=== PATIENT | male | born 1995 | race Caucasian/White ===

== ENCOUNTER 2021-09-02 14:32 | Emergency (ER) | payer OTHER ==
[~2021-09-02] VITALS: Ht 190 cm; Wt 208.0 kg
--- NOTE | 2021-09-02 14:45 | ED Abdominal Pain ---
General Stated Complaint: RLQ PAIN Source of Information: Patient Exam Limitations: No Limitations History of Present Illness Date Seen by Provider: Sep 02, 2021 Time Seen by Provider: 14:29 Initial Comments Patient ER by a private conveyance from [facility] with chief complaint is had about 2 to 3 days of abdominal pain right lower quadrant. He had a bowel movement this morning which was normal and did not relieve or worsen his pain. Last time he ate was at 9:00 this morning. Did not relieve or worsen his pain. No nausea vomiting fevers chills rash or sick contacts. No history of abdominal surgeries. No significant medical history. The patient was awoken from sleep early this morning with the pain. He rates it as about 4 out of 10. He has not taken anything for the pain. Allergies and Home Medications Allergies Coded Allergies: No Known Drug Allergies (Unverified , 09/02/21) Patient Home Medication List Home Medication List Reviewed: Yes Review of Systems Review of Systems Constitutional: No chills, No diaphoresis EENTM: No Blurred Vision, No Double Vision Respiratory: Denies Cough, Denies Shortness of Air Cardiovascular: Denies Chest Pain, Denies Lightheadedness Gastrointestinal: Abdominal Pain; Denies Constipated, Denies Diarrhea, Denies Nausea Genitourinary: Denies Discharge, Denies Drainage Musculoskeletal: No back pain, No joint pain Skin: No pruritus, No rash Psychiatric/Neurological: Denies Headache, Denies Numbness All Other Systems Reviewed Negative Unless Noted: Yes Past [place]-Kgryll-Boskke Hx Patient Social History Tobacco Use?: No Use of E-Cig and/or Vaping dev: No Substance use?: No Physical Exam Vital Signs Vital Signs - First Documented 09/02/21 14:40 Temp 37.1 Pulse 83 Resp 18 B/P (MAP) 167/103 (124) Pulse Ox 100 Capillary Refill : Height/Weight/BMI Height: '" Weight: lbs. oz. kg; BMI Method: General Appearance: WD/WN, no apparent distress HEENT: PERRL/EOMI, pharynx normal Neck: full range of motion, normal inspection Respiratory: lungs clear, normal breath sounds, no respiratory distress, no accessory muscle use Cardiovascular: normal peripheral pulses, regular rate, rhythm Gastrointestinal: normal bowel sounds, non tender, soft, no organomegaly; No rebound; other (Negative for psoas sign, Rovsing sign, McBurney's point tenderness. Some tenderness under the umbilicus just to the right side.) Extremities: normal range of motion, non-tender, normal capillary refill Neurologic/Psychiatric: alert, normal mood/affect, oriented x 3 Skin: normal color, warm/dry Progress/Results/Core Measures Results/Orders Lab Results Laboratory Tests Test 09/02/21 14:50 Range/Units White Blood Count 9.4 4.3-11.0 10^3/uL Red Blood Count 4.82 4.30-5.52 10^6/uL Hemoglobin 14.0 13.3-17.7 g/dL Hematocrit 44 40-54 % Mean Corpuscular Volume 90 80-99 fL Mean Corpuscular Hemoglobin 29 25-34 pg Mean Corpuscular Hemoglobin Concent 32 32-36 g/dL Red Cell Distribution Width 13.5 10.0-14.5 % Platelet Count 277 130-400 10^3/uL Mean Platelet Volume 10.3 9.0-12.2 fL Immature Granulocyte % (Auto) 0 % Neutrophils (%) (Auto) 63 42-75 % Lymphocytes (%) (Auto) 27 12-44 % Monocytes (%) (Auto) 6 0-12 % Eosinophils (%) (Auto) 3 0-10 % Basophils (%) (Auto) 1 0-10 % Neutrophils # (Auto) 5.9 1.8-7.8 10^3/uL Lymphocytes # (Auto) 2.6 1.0-4.0 10^3/uL Monocytes # (Auto) 0.6 0.0-1.0 10^3/uL Eosinophils # (Auto) 0.3 0.0-0.3 10^3/uL Basophils # (Auto) 0.1 0.0-0.1 10^3/uL Immature Granulocyte # (Auto) 0.0 0.0-0.1 10^3/uL Sodium Level 138 135-145 MMOL/L Potassium Level 4.3 3.6-5.0 MMOL/L Chloride Level 103 98-107 MMOL/L Carbon Dioxide Level 22 21-32 MMOL/L Anion Gap 13 5-14 MMOL/L Blood Urea Nitrogen 15 7-18 MG/DL Creatinine 0.80 0.60-1.30 MG/DL Estimat Glomerular Filtration Rate 124 BUN/Creatinine Ratio 19 Glucose Level 86 70-105 MG/DL Calcium Level 9.8 8.5-10.1 MG/DL Corrected Calcium 8.5-10.1 MG/DL Total Bilirubin 0.6 0.1-1.0 MG/DL Aspartate Amino Transf (AST/SGOT) 29 5-34 U/L Alanine Aminotransferase (ALT/SGPT) 55 0-55 U/L Alkaline Phosphatase 71 40-136 U/L C-Reactive Protein High Sensitivity 0.69 H 0.00-0.50 MG/DL Total Protein 7.8 6.4-8.2 GM/DL Albumin 4.6 H 3.2-4.5 GM/DL My Orders Orders - MAUREEN BETTENCOURT Cbc With Automated Diff (09/02/21 14:37) Comprehensive Metabolic Panel (09/02/21 14:37) Hs C Reactive Protein (09/02/21 14:37) Ed Iv/Invasive Line Start (09/02/21 14:37) Ct Abd/Pelv W (Appendicitis) (09/02/21 14:37) Iohexol Injection (Omnipaque 350 Mg/Ml 1 (09/02/21 15:00) Received Contrast (Hold Metformin- Contr (09/02/21 15:00) Sodium Chloride Flush (Catheter Flush Sy (09/02/21 15:00) Ns (Ivpb) (Sodium Chloride 0.9% Ivpb Bag (09/02/21 15:00) Medications Given in ED Current Medications Medications Dose Ordered Sig/Nahed Route Start Time Stop Time Status Last Admin Dose Admin Iohexol 100 ml ONCE ONCE IV 09/02/21 15:00 09/02/21 15:01 DC 09/02/21 15:10 100 ML Sodium Chloride 10 ml NEEDED PRN IV 09/02/21 15:00 09/02/21 15:10 10 ML Sodium Chloride 100 ml ONCE ONCE IV 09/02/21 15:00 09/02/21 15:01 DC 09/02/21 15:10 80 ML Vital Signs/I&O 09/02/21 14:40 Temp 37.1 Pulse 83 Resp 18 B/P (MAP) 167/103 (124) Pulse Ox 100 Progress Progress Note : Time: 14:53 Progress Note Patient declined anything for pain. We will go ahead and give him a liter of fluids check some labs and get a CT of his abdomen pelvis with IV contrast to focus on the appendix. Diagnostic Imaging Diagonstic Imaging: CT Plain Films/CT/US/NM/MRI: abdomen, pelvis Comments [facility], [place] NAME: JUAN M NATARAJAN [facility] REC#: [id number] PT STATUS: REG ER : 1995 PHYSICIAN: MAUREEN BETTENCOURT MD ADMIT DATE: 09/02/21/ER Signed Date of Exam:09/02/21 CT ABD/PELV W (APPENDICITIS) EXAMINATION: CT abdomen and pelvis with intravenous contrast. TECHNIQUE: Multiple contiguous axial images were obtained through the abdomen and pelvis after the uneventful administration of intravenous contrast. All CT scans use one or more of the following dose optimizing techniques: Automated exposure control, MA and/or KvP adjustment based on patient size and exam type or iterative reconstruction. HISTORY: RLQ pain. COMPARISON: None available. FINDINGS: Lung bases: The lung bases are clear. Solid organs: The liver is normal without focal lesion. The gallbladder is normal. There is no biliary ductal dilation. Pancreas is normal. Spleen is normal. Adrenal glands are normal. The kidneys are normal without hydronephrosis. Bowel: The stomach and small bowel are normal without obstruction. The colon and appendix are normal. Peritoneum: There is no intraperitoneal free fluid or free air. No suspicious lymphadenopathy. Vasculature: Normal without aneurysm. Musculoskeletal: No suspicious osseous lesion or compression fracture. Pelvis: The prostate gland is normal. The urinary bladder is normal. IMPRESSION: 1. No acute abnormality in the abdomen or pelvis. Dictated by: Dictated on workstation # [id number] Dict: 09/02/21 1514 Trans: 09/02/21 1632 [id number] Interpreted by: GOKUL STAFFORD DO Electronically signed by: GOKUL STAFFORD DO 09/02/21 1632 Reviewed: Reviewed by Me Departure Impression Primary Impression: Abdominal pain Qualified Codes: R10.31 - Right lower quadrant pain Disposition: 01 HOME, SELF-CARE Condition: Stable Departure-Patient Inst. Decision time for Depature: 16:56 Referrals: FABIAN GARCIA MD (PCP/Family) Primary Care Physician Patient Instructions: Stomach Ache and Stomach Upset Add. Discharge Instructions: Drink plenty of fluids. If you get nauseated you can use Zofran 1 tablet every 6 hours. If you have severe intractable pain that does not respond to Tylenol, ibuprofen or Tums then you may return to the nearest ER for further evaluation. If your symptoms are mild but persistent then you can follow-up with your primary care doctor for reevaluation next week. Scripts Ondansetron (Ondansetron Odt) 4 Mg Tab.rapdis 4 MG PO Q6H PRN for NAUSEA/VOMITING, #8 TAB 0 Refills Prov: MAUREEN BETTENCOURT 09/02/21 MAUREEN BETTENCOURT Sep 02, 2021 14:45
[2021-09-02] MEDS ORDERED: NS 100 ML (IVPB) BAG IV ONE (15:00)
[2021-09-02] MEDS ORDERED: CATHETER FLUSH 10 ML SYR IV PRN (15:00)
[2021-09-02] MEDS ORDERED: IOHEXOL 350 MG/ML 100 ML (OMNIPAQUE 350) VIAL IV ONE (15:00)
[2021-09-02] MEDS ORDERED: HOLD METFORMIN - RECEIVED CONTRAST 20 ML VIAL IV SCH (15:00)
[2021-09-02 15:10] LABS: ALBUMIN 4.6 GM/DL (3.2-4.5); CHLORIDE 103 MMOL/L (98-107); POTASSIUM 4.3 MMOL/L (3.6-5.0); SODIUM 138 MMOL/L (135-145)
[2021-09-02 15:11] LABS: CALCIUM 9.8 MG/DL (8.5-10.1)
[2021-09-02 15:13] LABS: GLUCOSE 86 MG/DL (70-105); TOTAL PROTEIN 7.8 GM/DL (6.4-8.2)
[2021-09-02 15:14] LABS: CARBON DIOXIDE 22 MMOL/L (21-32)
[2021-09-02 15:15] LABS: BILIRUBIN,TOTAL 0.6 MG/DL (0.1-1.0)
[2021-09-02 15:16] LABS: ALKALINE PHOSPHATASE 71 U/L (40-136); BASOPHILS # (AUTO) 0.1 10^3/uL (0.0-0.1); BASOPHILS % (AUTO) 1 % (0-10); EOSINOPHILS # (AUTO) 0.3 10^3/uL (0.0-0.3); EOSINOPHILS % (AUTO) 3 % (0-10); HEMATOCRIT 44 % (40-54); LYMPHOCYTES # (AUTO) 2.6 10^3/uL (1.0-4.0); LYMPHOCYTES % (AUTO) 27 % (12-44); MEAN CORPUSCULAR HEMOGLOBIN 29 pg (25-34); MEAN CORPUSCULAR HGB CONC 32 g/dL (32-36); MEAN CORPUSCULAR VOLUME 90 fL (80-99); MEAN PLATELET VOLUME 10.3 fL (9.0-12.2); MONOCYTES # (AUTO) 0.6 10^3/uL (0.0-1.0); MONOCYTES % (AUTO) 6 % (0-12); NEUTROPHILS # (AUTO) 5.9 10^3/uL (1.8-7.8); NEUTROPHILS % (AUTO) 63 % (42-75); PLATELET COUNT 277 10^3/uL (130-400); WHITE BLOOD COUNT 9.4 10^3/uL (4.3-11.0)
[2021-09-02 15:17] LABS: GFR ESTIMATED 124
[2021-09-02 15:18] LABS: BUN/CREATININE RATIO 19
[2021-09-02 15:19] LABS: ALANINE AMINOTRANSFERASE 55 U/L (0-55)
--- NOTE | 2021-09-02 15:25 | Diagnostic Imaging Report ---
EXAMINATION: CT abdomen and pelvis with intravenous contrast. TECHNIQUE: Multiple contiguous axial images were obtained through the abdomen and pelvis after the uneventful administration of intravenous contrast. All CT scans use one or more of the following dose optimizing techniques: Automated exposure control, MA and/or KvP adjustment based on patient size and exam type or iterative reconstruction. HISTORY: RLQ pain. COMPARISON: None available. FINDINGS: Lung bases: The lung bases are clear. Solid organs: The liver is normal without focal lesion. The gallbladder is normal. There is no biliary ductal dilation. Pancreas is normal. Spleen is normal. Adrenal glands are normal. The kidneys are normal without hydronephrosis. Bowel: The stomach and small bowel are normal without obstruction. The colon and appendix are normal. Peritoneum: There is no intraperitoneal free fluid or free air. No suspicious lymphadenopathy. Vasculature: Normal without aneurysm. Musculoskeletal: No suspicious osseous lesion or compression fracture. Pelvis: The prostate gland is normal. The urinary bladder is normal. IMPRESSION: 1. No acute abnormality in the abdomen or pelvis. Dictated by: Dictated on workstation # [id number]
[2021-09-02] MEDS ORDERED: ONDA4TAB11 PO (16:59)
[2021-09-02 17:22] VITALS: BP 150/88
== END 2021-09-02 17:22 | disposition home or self-care (01) ==
LOC: ER 14:35
DX: R10.31 Right lower quadrant pain (principal)
CPT/HCPCS: 36415; 74177; 80053; 85025; 86141

== ENCOUNTER → 2021-12-23 | Outpatient (CLI) | payer OTHER ==
[~2021-12-23] MED LIST: ONDA4TAB11 PO
[2021-12-23 14:17] VITALS: BP 140/67
--- NOTE | 2021-12-24 08:56 | Cardiology Stress Test Report ---
Stress Test Report Date of Procedure/Referring: Date of Procedure: Dec 23, 2021 PCP Dayna Gonzalez MD Admitting Physician Admitting Physician: Attending Physician: Virginia Davidson Indications: CP Baseline Heart Rate: 81 Baseline Blood Pressure: Blood Pressure Systolic: 140 Blood Pressure Diastolic: 67 Baseline EKG: Baseline EKG: NSR Summary/Conclusion: Summary: In summary, the patient started exercising with a baseline heart rate, blood pressure and EKG mentioned above Patient was able to exercise for a total of 6.30 minutes on Faustino protocol, METs 7.9 Maximum heart rate 167 Maximum blood pressure 212/44 Stress EKG, Minimal nondiagnostic changes Recovery EKG , Return to baseline Conclusion: 1. Good exercise tolerance for a total of minutes on 6.30 Faustino protocol, 7.9 METs, achieving 86 percent of maximum expected heart rate 2. Minimal nondiagnostic EKG changes with exercise returned to baseline during recovery 3. No arrhythmia was noted Copy Copies To 1: RACH LOYA BASHAR J MD Dec 24, 2021 08:56
== END ==
LOC: CARD 12:11
PROVIDERS: ATTEND Physician Assistant
DX: R07.9 Chest pain, unspecified (principal)
CPT/HCPCS: 93017

== ENCOUNTER → 2022-02-11 | Outpatient (CLI) | payer OTHER | LOC: CARD 08:32 | PROVIDERS: ATTEND Internal Medicine Cardiovascular Disease | DX: I11.9 Hypertensive heart disease without heart failure (principal); I25.10 Atherosclerotic heart disease of native coronary artery without angina pectoris | CPT/HCPCS: 93306 ==